=== PATIENT | male | born 1940 | race Caucasian/White ===

== ENCOUNTER 2016-06-05 | Emergency (ER) | payer OTHER ==
--- NOTE | 2016-06-05 01:03 | PROVIDER DOCUMENTATION ---
HPI-Male Problem - General Source: patient, family <Eduard Bueno - Last Filed: 06/05/16 02:37> <JenniferHortencia - Last Filed: 06/05/16 02:42> - General Chief Complaint: Male Stated Complaint: @FALL 1530 Time Seen by Provider: 06/05/16 00:16 Allergies/Adverse Reactions: Patient Allergies Allergy/AdvReac Type Severity Reaction Status Date / Time No Known Allergies Allergy Verified 06/05/16 00:16 Home Medications: Losartan [Cozaar] 25 mg PO QAM 11/27/13 [place] Fatty Acids/Fish Oil [[place] 1,000 mg Softgel] 1,000 mg PO QAM Aspirin 325 mg PO QHS 06/05/16 Bisoprolol Fumarate/Hctz [Bisoprolol-Hctz 5-6.25 mg Tab] 1 each PO QAM 06/05/16 Carvedilol 3.125 mg PO BID 06/05/16 Donepezil [Aricept] 5 mg PO QHS 06/05/16 Prasugrel [Effient] 10 mg PO QAM 06/05/16 Sitagliptin Phos/Metformin HCl [Janumet 50-500 mg Tablet] 1 each PO BID Tamsulosin [Flomax] 0.4 mg PO QHS 06/05/16 Venlafaxine [Effexor] 75 mg PO QAM 06/05/16 - History of Present Illness-Male Nature of Presenting Problem: Pt is a 75 y/o male c chief complaint of dysuria and weakness x 1 week. Pt has been taking flomax and wearing a depends diaper and feels like he may have a UTI. This evening, pt slid out of his bed because he was too weak to stand. Pt did not fall or land hard on the floor. His witnessed him slide out of bed and noticed a foul odor to his urine. Last week, pt had a minor head injury to his R side of his head after falling. He was evaluated at another ER with a CT scan and found to be in no distress. (Eduard Bueno) Review of Systems - Adult - REVIEW OF SYSTEMS - ADULT Constitutional: reports: no symptoms reported. denies: chills, fatique Eyes: reports: no symptoms reported. denies: blurred vision, double vision Ears, Nose, Mouth & Throat: reports: no symptoms reported. denies: ear pain, nose pain, throat pain Cardiovascular: reports: no symptoms reported. denies: chest pain, orthopnea Respiratory: reports: no symptoms reported. denies: cough, shortness of breath Gastrointestinal: reports: no symptoms reported. denies: abdominal pain, nausea Genitourinary: reports: dysuria, flank pain, frequent UTI's. denies: hematuria Musculoskeletal: reports: no symptoms reported. denies: bone pain, joint pain Integumentary: reports: no symptoms reported. denies: hives, itching Neurological: reports: no symptoms reported. denies: numbness, paresthesia Psychiatric: reports: no symptoms reported. denies: anxiety, emotional problems Endocrine: reports: no symptoms reported. denies: cold intolerance, heat intolerance Hematologic/Lymphatic: reports: no symptoms reported. denies: blood clots, low blood count Allergic/Immunologic: reports: no symptoms reported. denies: allergic reactions , food allergy All Other Systems: Reviewed and Negative <Eduard Bueno - Last Filed: 06/05/16 02:37> Past History - Adult - PAST MEDICAL HISTORY-ADULT Review of Records: reports: Old Records Reviewed, Nursing Assessment Review, Medications Reviewed, Social history reviewed & non-contributory. Major Childhood Illnesses: reports: denies history Cardiovascular: reports: CAD, HTN, [place] Respiratory: reports: denies history Gastrointestinal: reports: denies history Obstetrical/Gynecological: reports: denies history Genitourinary: reports: denies history Musculoskeletal: reports: denies history Neurological: reports: denies history Psychiatric: reports: denies history Endocrine/Immune: reports: Diabetes Other Conditions: reports: denies history - PRIOR HOSPITALIZATIONS Prior Hospitalizations: reports: for other non-related - IMMUNIZATION STATUS Childhood Immunizations: See Nurse Assessment Flu Vaccine: See Nurse Assessment - FAMILY HISTORY Family History: reviewed, not pertinent - SOCIAL HISTORY Smoking: denies Substance Use: none/never Alcohol Use Frequency: never Living Situation: family <Eduard Bueno - Last Filed: 06/05/16 02:37> Physical Exam-General - PHYSICAL EXAM-ADULT Initial Vital Signs Reviewed: Yes - CONSTITUTIONAL General Appearance: appears well, alert, no apparent distress - EYES Eyes: PERRL/EOMI, pink conjunctivae - HEAD, EARS, NOSE, MOUTH & THROAT HENMT: normocephalic/atraumatic, moist mucous membranes, normal ENT inspection - NECK Neck: non-tender, full range of motion, normal inspection - RESPIRATORY Respiratory: chest non-tender, lungs clear, normal breath sounds - CARDIOVASCULAR Cardiovascular: normal peripheral pulses, regular rate, rhythm, no edema - GASTROINTESTINAL (ABDOMEN) Abdominal Exam: normal bowel sounds, non tender, soft - GENITOURINARY Female Genitalia/Pelvic Exam: external exam normal - LYMPHATIC Lymphatic: no adenopathy - MUSCULOSKELETAL Back Exam: normal inspection, no CVA tenderness, no vertebral tenderness Extremity: normal range of motion, non-tender, normal gait - SKIN Integumentary: normal color, normal turgor, warm/dry - NEUROLOGIC Neurologic: grossly normal, no motor/sensory deficits - PSYCHIATRIC Psych/Mental Status: normal mood/affect, normal thought content, normal thought process, oriented x 3 <Eduard Bueno - Last Filed: 06/05/16 02:37> Progress - REASSESSMENT Reassessment #1 Time Reassessed: 02:41 (Dr. No ( MD) reviewed labs and imaging studies. He agreed c plan of care to d/c pt to have him f/u c pcp. ) - XRAY 1 XRAY Study: Chest Impression: Normal (unchanged from 11/27/13) <Eduard Bueno - Last Filed: 06/05/16 02:37> - EKG 1 Time of EKG reading by physician:: 02:34 EKG Read and Signed by:: Markos No EKG Interpretation (*Must complete 3 of following elements*): Abnormal Rate: 53 Rhythm: Sinus Bradycardia Comments: Inferior Infract, Abnormal ECG - CT/MRI 1 CT Study: Head Impression: Normal CT Results: Atrophy otherwise normal <Hortencia Rodriguez - Last Filed: 06/05/16 02:42> - PLAN OF CARE/RESULTS Progress/Plan/Lab Results: Orders Category Date Time Status CHEST-2 VIEWS [RAD] Stat Exams 06/05/16 01:46 Taken HEAD W/O CONTRAST [CT] Stat Exams 06/05/16 01:48 Taken CBC WITH ELECTRONIC DIFF [HEME] Stat Lab 06/05/16 01:05 Completed CK PROFILE [SP CHEM] Stat Lab 06/05/16 01:05 Completed CMP [COMPREHENSIVE METABOLIC PANEL] [CHEM] Stat Lab 06/05/16 01:05 Completed TROPONIN T Stat Lab 06/05/16 01:05 Completed UA Reflex [URINALYSIS W/POSS RFLX CULT] [URINALYSIS] Lab 06/05/16 00:56 Completed Stat EKG [EKG] Stat Ther 06/05/16 01:48 Ordered Laboratory Tests 06/05/16 06/05/16 06/05/16 00:56 01:05 01:05 WBC 13.29 H RBC 4.08 L Hgb 13.7 L Hct 38.0 L MCV 93.1 MCH 33.6 H MCHC 36.1 RDW Std Deviation 12.4 Plt Count 262 MPV 9.6 Immature Gran % (Auto) 0.2 Neut % (Auto) 75.7 H Lymph % (Auto) 14.6 L [place] % (Auto) 8.1 Eos % (Auto) 1.2 Baso % (Auto) 0.2 Immature Gran # (Auto) 0.02 Neut # 10.08 H Lymph # 1.94 [place] # 1.07 H Eos # 0.16 Baso # 0.02 Sodium 138 Potassium 3.7 Chloride 101 Carbon Dioxide 23 L Anion Gap 14 BUN 20 Creatinine 1.1 Estimated GFR/1.73 m2 > 60 BUN/Creatinine Ratio 18 Glucose 130 H Calculated Osmolality 280 Calcium 9.6 Total Bilirubin 0.54 AST 38 H ALT 26 Alkaline Phosphatase 93 Creatine Kinase Creatine Kinase Index CK-MB (CK-2) Troponin T Total Protein 6.6 Albumin 4.0 Globulin 2.6 Albumin/Globulin Ratio 1.5 Urine Source CATH Urine Color YELLOW Urine Turbidity CLEAR Urine pH 5.5 Ur Specific [place] 1.021 Urine Protein NEGATIVE Ur Glucose (Stick) NEGATIVE Ur Ketones (Stick) NEGATIVE Urine Blood NEGATIVE Urine Nitrite NEGATIVE Urine Bilirubin NEGATIVE Urobilinogen Dipstick NORMAL Urine Leukocytes NEGATIVE Urine WBC (Auto) <10 Urine RBC (Auto) <10 U Epithel Cells (Auto) <10 Urine Bacteria (Auto) NEGATIVE 06/05/16 06/05/16 01:05 01:05 WBC RBC Hgb Hct MCV MCH MCHC RDW Std Deviation Plt Count MPV Immature Gran % (Auto) Neut % (Auto) Lymph % (Auto) [place] % (Auto) Eos % (Auto) Baso % (Auto) Immature Gran # (Auto) Neut # Lymph # [place] # Eos # Baso # Sodium Potassium Chloride Carbon Dioxide Anion Gap BUN Creatinine Estimated GFR/1.73 m2 BUN/Creatinine Ratio Glucose Calculated Osmolality Calcium Total Bilirubin AST ALT Alkaline Phosphatase Creatine Kinase 1088 H Creatine Kinase Index 1.1 CK-MB (CK-2) 11.52 H Troponin T < 0.010 Total Protein Albumin Globulin Albumin/Globulin Ratio Urine Source Urine Color Urine Turbidity Urine pH Ur Specific [place] Urine Protein Ur Glucose (Stick) Ur Ketones (Stick) Urine Blood Urine Nitrite Urine Bilirubin Urobilinogen Dipstick Urine Leukocytes Urine WBC (Auto) Urine RBC (Auto) U Epithel Cells (Auto) Urine Bacteria (Auto) Vital Signs - 24 hr 06/05/16 00:07 Temperature 97.7 F Pulse Rate 64 Respiratory 18 Rate Blood Pressure 148/95 O2 Sat by Pulse 98 Oximetry (Eduard Bueno) Departure - Departure Time of Disposition Order: 02:39 Certified Medical Emergency: Emergent <Eduard Bueno - Last Filed: 06/05/16 02:37> <Hortencia Rodriguez - Last Filed: 06/05/16 02:42> - Departure DIAGNOSIS: Weakness Leukocytosis Qualifiers: Leukocytosis type: unspecified Qualified Code(s): D72.829 - Elevated white blood cell count, unspecified Disposition: HOME 01 Condition: Stable Prescriptions: Cephalexin [Keflex] 500 mg PO BID #14 capsule Referrals: Cezar Millard MD [Primary Care Provider] - [place] BRADFORD MD [STAFF PHYSICIAN] - Attestation - Physician/ Mid-level Attestation Patient care was provided by Mid-level provider (CERTIFIED PERSONAL CHEF/PA):: Yes Mid-level provider:: Eduard Bueno Mid-level documentation review:: The Mid-level provider documentation, treatment plan and medical decision making was reviewed by the physician who agrees with all treatment and medical decision making by the MLP. <Eduard Bueno - Last Filed: 06/05/16 02:37> Physician Attestation
[2016-06-05 01:16] LABS: URINE CULTURE NEEDED? NO; URINE MICRO REVIEW NEEDED? NO; URINE SOURCE CATH
[2016-06-05 01:16] LABS: MANUAL DIFF NEEDED? NO
[2016-06-05 01:18] LABS: BASO% 0.2 % (0.0-0.8); EOS# 0.16 X1000 (0.0-0.7); EOS% 1.2 % (0.0-10.0); HEMOGLOBIN 13.7 g/dL (14.0-18.0); IMM GRAN# 0.02 X1000 (0.0-0.04); IMM GRAN% 0.2 % (0.0-0.5); LYMPH# 1.94 X1000 (1.2-3.4); LYMPH% 14.6 % (20.5-51.1); MCH 33.6 PG (27-31); MCHC 36.1 g/dL (33-37); MCV 93.1 FL (81-99); MONO# 1.07 X1000 (0.11-0.59); MONO% 8.1 % (1.7-9.3); MPV 9.6 FL (7.4-10.4); NEUT% 75.7 % (42.2-75.2); PLT 262 X1000 (130-400); RBC 4.08 XMIL (4.7-6.1)
[2016-06-05 01:19] LABS: BILIRUBIN URINE NEGATIVE (NEGATIVE); BLOOD URINE NEGATIVE (NEGATIVE); COLOR YELLOW; GLUCOSE URINE NEGATIVE (NEGATIVE); LEUKOCYTES URINE NEGATIVE (NEGATIVE); NITRITE URINE NEGATIVE (NEGATIVE); PH URINE 5.5; PROTEIN URINE NEGATIVE (NEGATIVE); SP GRAVITY URINE 1.021; TURBIDITY URINE CLEAR (CLEAR); UROBILINOGEN URINE NORMAL (NORMAL)
[2016-06-05 01:21] LABS: UR EPITHELIAL CELLS <10 /HPF (<10); URINE BACTERIA NEGATIVE /HPF; URINE RBC <10 /HPF (<10); URINE WBC <10 /HPF (<10)
[2016-06-05 01:37] LABS: AGAP 14; ALKALINE PHOSPHATASE 93 U/L (32-122); BUN 20 mg/dL (8-22); CALCIUM 9.6 mg/dL (8.8-10.2); CHLORIDE 101 mmol/L (98-107); COSMO 280; GOT 38 U/L (10-34); GPT 26 U/L (10-44); POTASSIUM 3.7 mmol/L (3.5-5.1); SODIUM 138 mmol/L (136-145); TCO2 23 mmol/L (25-35); TOTAL BILIRUBIN 0.54 mg/dL (0.20-1.00); TOTAL PROTEIN 6.6 g/dL (6.3-8.3)
[2016-06-05 02:30] LABS: CK INDEX 1.1 (0.0-2.5); CK-MB 11.52 ng/mL (0.0-5.0)
[2016-06-05] MEDS ORDERED: ROCEPHIN 1 GM/NS 50 ML IV ONE (02:39)
[2016-06-05] MEDS ORDERED: ROCEPHIN IM ONE (02:56)
[2016-06-05] MEDS ORDERED: XYLOCAINE-MPF 1% INJ ONE (02:56)
[2016-06-05 03:39] VITALS: BP 152/78
--- NOTE | 2016-06-05 05:50 | EKG Report ---
Test Performed on : 06/05/2016 02:34:12 AM Test Reason : weakness Blood Pressure : / mmHG Vent. Rate : 053 BPM Atrial Rate : 053 BPM P-R Int : 174 ms QRS Dur : 086 ms QT Int : 452 ms P-R-T Axes : 067 -09 -12 degrees QTc Int : 424 ms Sinus bradycardia. Inferior infarct , age undetermined Abnormal ECG No previous ECGs available Unconfirmed Result
--- NOTE | 2016-06-05 07:32 | Diag Imaging Result Document ---
PROCEDURE NAME: CHEST-2 VIEWS - 06/05/2016 CHEST X-RAY 2 VIEWS: COMPARISON: 11/27/2013. FINDINGS: Stable calcified granulomas in the right lung base. No focal infiltrates, pneumothorax, or pleural effusion. Heart size is normal. IMPRESSION: Negative exam.
--- NOTE | 2016-06-05 08:19 | Diag Imaging Result Document ---
PROCEDURE NAME: HEAD W/O CONTRAST - 06/05/[address], 06/05/2016: A CT dose reduction protocol was used. COMPARISON: 11/27/2013. FINDINGS: Stable diffuse atrophy. No intracranial mass or hemorrhage. The skull is intact. The sinuses, mastoids, and middle ears are clear. There is moderate vascular calcification of the carotid siphons and basilar artery. IMPRESSION: Chronic ischemic changes of the brain. No acute disease. [facility]
== END 2016-06-05 03:39 | disposition home or self-care (01) ==
LOC: ED
DX: R53.1 Weakness (principal); D72.829 Elevated white blood cell count, unspecified; R94.31 Abnormal electrocardiogram [ECG] [EKG]; R30.0 Dysuria; R10.9 Unspecified abdominal pain; I25.10 Atherosclerotic heart disease of native coronary artery without angina pectoris; I10 Essential (primary) hypertension; I25.2 Old myocardial infarction; Z79.899 Other long term (current) drug therapy; E11.9 Type 2 diabetes mellitus without complications; Z79.82 Long term (current) use of aspirin; Z87.440 Personal history of urinary (tract) infections; W19.XXXA Unspecified fall, initial encounter
CPT/HCPCS: 70450; 71020; 80053; 81001; 82550; 82553; 84484; 85025; 93005; 96372; J0696

== ENCOUNTER 2016-06-12 17:32 | Emergency (ER) | payer OTHER ==
[2016-06-12 18:55] LABS: MANUAL DIFF NEEDED? NO
[2016-06-12 18:56] LABS: BASO% 0.4 % (0.0-0.8); EOS# 0.08 X1000 (0.0-0.7); EOS% 0.9 % (0.0-10.0); HEMATOCRIT 39.2 % (42.0-52.0); HEMOGLOBIN 13.9 g/dL (14.0-18.0); IMM GRAN# 0.02 X1000 (0.0-0.04); IMM GRAN% 0.2 % (0.0-0.5); LYMPH# 1.74 X1000 (1.2-3.4); LYMPH% 20.3 % (20.5-51.1); MCHC 35.5 g/dL (33-37); MCV 93.1 FL (81-99); MONO# 0.74 X1000 (0.11-0.59); MONO% 8.6 % (1.7-9.3); MPV 9.5 FL (7.4-10.4); NEUT% 69.6 % (42.2-75.2); PLT 276 X1000 (130-400); RBC 4.21 XMIL (4.7-6.1)
[2016-06-12 19:22] LABS: ALBUMIN 4.2 g/dL (3.5-5.0); CALCIUM 9.5 mg/dL (8.8-10.2); POTASSIUM 3.8 mmol/L (3.5-5.1); TOTAL BILIRUBIN 0.67 mg/dL (0.20-1.00); TOTAL PROTEIN 7.4 g/dL (6.3-8.3)
[2016-06-12 20:20] LABS: URINE CULTURE NEEDED? NO; URINE MICRO REVIEW NEEDED? NO; URINE SOURCE CLEAN CATCH
[2016-06-12 20:21] LABS: BILIRUBIN URINE NEGATIVE (NEGATIVE); BLOOD URINE NEGATIVE (NEGATIVE); COLOR YELLOW; GLUCOSE URINE NEGATIVE (NEGATIVE); LEUKOCYTES URINE NEGATIVE (NEGATIVE); NITRITE URINE NEGATIVE (NEGATIVE); PH URINE 5.5; PROTEIN URINE NEGATIVE (NEGATIVE); SP GRAVITY URINE 1.017; TURBIDITY URINE CLEAR (CLEAR); UROBILINOGEN URINE NORMAL (NORMAL)
[2016-06-12 20:22] LABS: UR EPITHELIAL CELLS <10 /HPF (<10); URINE BACTERIA NEGATIVE /HPF; URINE RBC <10 /HPF (<10); URINE WBC <10 /HPF (<10)
--- NOTE | 2016-06-12 20:55 | PROVIDER DOCUMENTATION ---
Addendum entered and electronically signed by Heena Cesar Scribe 06/12/16 21: 08: [facility]-General Adult - General Chief Complaint: Weakness Stated Complaint: RECHECK Time Seen by Provider: 06/12/16 20:14 Allergies/Adverse Reactions: Patient Allergies Allergy/AdvReac Type Severity Reaction Status Date / Time No Known Allergies Allergy Verified 06/12/16 20:36 Home Medications: Losartan [Cozaar] 25 mg PO QAM 11/27/13 [address] Fatty Acids/Fish Oil [[address] 1,000 mg Softgel] 1,000 mg PO QAM Aspirin 325 mg PO QHS 06/05/16 Bisoprolol Fumarate/Hctz [Bisoprolol-Hctz 5-6.25 mg Tab] 1 each PO QAM 06/05/16 Carvedilol 3.125 mg PO BID 06/05/16 Donepezil [Aricept] 5 mg PO QHS 06/05/16 Prasugrel [Effient] 10 mg PO QAM 06/05/16 Sitagliptin Phos/Metformin HCl [Janumet 50-500 mg Tablet] 1 each PO BID Tamsulosin [Flomax] 0.4 mg PO QHS 06/05/16 Venlafaxine [Effexor] 75 mg PO QAM 06/05/16 L.acidoph,Paracasei, B.lactis [Probiotic] 1 each PO HS 06/12/16 - History of Present Illness -Gen Adult Nature of Presenting Problems: 75 year old M presents to the ED with a cc of weakness. PT was admitted 1 week ago for weakness and was discharged with mild leukocytosis and placed on an antibiotic. states that pt is worse today. Per Dr. Millard, Pt had an appointment today for a urinalysis at [address] Millard states that was banging on the door making a scene. Staff opened the door and told that they were closed and to come to the ED. Original Note: [facility]-General Adult - General Source: patient - History of Present Illness -Gen Adult Location of Pain/Injury: reports: none Pain Radiation: reports: no radiation Quality of Pain: reports: none Severity: reports: mild Onset/Duration: reports: 1 week ago Timing: reports: still present Context/Activities at Onset: reports: none Modifying Factors: improves with: nothing Associated Symptoms: reports: weakness Similar Symptoms Previously?: Yes Recently seen or treated by another doctor?: Yes <Heena Cesar - Last Filed: 06/12/16 20:57> <Manuel Cartwright - Last Filed: 06/12/16 21:02> - General Chief Complaint: Weakness Stated Complaint: RECHECK Time Seen by Provider: 06/12/16 20:14 Allergies/Adverse Reactions: Patient Allergies Allergy/AdvReac Type Severity Reaction Status Date / Time No Known Allergies Allergy Verified 06/12/16 20:36 Home Medications: Losartan [Cozaar] 25 mg PO QAM 11/27/13 [address] Fatty Acids/Fish Oil [[address] 1,000 mg Softgel] 1,000 mg PO QAM Aspirin 325 mg PO QHS 06/05/16 Bisoprolol Fumarate/Hctz [Bisoprolol-Hctz 5-6.25 mg Tab] 1 each PO QAM 06/05/16 Carvedilol 3.125 mg PO BID 06/05/16 Donepezil [Aricept] 5 mg PO QHS 06/05/16 Prasugrel [Effient] 10 mg PO QAM 06/05/16 Sitagliptin Phos/Metformin HCl [Janumet 50-500 mg Tablet] 1 each PO BID Tamsulosin [Flomax] 0.4 mg PO QHS 06/05/16 Venlafaxine [Effexor] 75 mg PO QAM 06/05/16 L.acidoph,Paracasei, B.lactis [Probiotic] 1 each PO HS 06/12/16 Review of Systems - Adult - REVIEW OF SYSTEMS - ADULT Constitutional: denies: chills, fever Eyes: reports: no symptoms reported Ears, Nose, Mouth & Throat: reports: no symptoms reported Cardiovascular: denies: chest pain, palpitations Respiratory: denies: cough, shortness of breath Gastrointestinal: denies: abdominal pain, nausea, vomiting Genitourinary: reports: no symptoms reported Musculoskeletal: reports: muscle weakness. denies: muscle aches Integumentary: denies: skin sores/ulcer, skin thickening Neurological: reports: no symptoms reported Psychiatric: reports: no symptoms reported Endocrine: reports: no symptoms reported Hematologic/Lymphatic: reports: no symptoms reported Allergic/Immunologic: reports: no symptoms reported All Other Systems: Reviewed and Negative <ArsenioHeena - Last Filed: 06/12/16 20:57> Past History - Adult - PAST MEDICAL HISTORY-ADULT Review of Records: reports: Nursing Assessment Review, Medications Reviewed Major Childhood Illnesses: reports: denies history Cardiovascular: reports: CAD, HTN, [place] Endocrine/Immune: reports: Diabetes - PRIOR HOSPITALIZATIONS Prior Hospitalizations: reports: for other non-related - IMMUNIZATION STATUS Childhood Immunizations: See Nurse Assessment Flu Vaccine: See Nurse Assessment - FAMILY HISTORY Family History: reviewed, not pertinent - SOCIAL HISTORY Smoking: non-smoker Substance Use: none/never Alcohol Use Frequency: never <Stacey Cesara - Last Filed: 06/12/16 20:57> Physical Exam-General - PHYSICAL EXAM-ADULT Initial Vital Signs Reviewed: Yes - CONSTITUTIONAL General Appearance: appears well, alert, no apparent distress - RESPIRATORY Respiratory: chest non-tender, lungs clear, normal breath sounds - CARDIOVASCULAR Cardiovascular: normal peripheral pulses, regular rate, rhythm, no edema - GASTROINTESTINAL (ABDOMEN) Abdominal Exam: normal bowel sounds, non tender, soft - MUSCULOSKELETAL Extremity: normal inspection - SKIN Integumentary: normal color, normal turgor, warm/dry - PSYCHIATRIC Psych/Mental Status: normal mood/affect, normal thought content, normal thought process, oriented x 3 <ArsenioHeena - Last Filed: 06/12/16 20:57> Progress - EKG 1 Time of EKG reading by physician:: 18:08 EKG Read and Signed by:: Kevin Ye EKG Interpretation (*Must complete 3 of following elements*): Abnormal Rate: 69 Rhythm: sinus bradycadia with occasional PVCs [place]: normal Comments: inferior infarct, age undetermined. - CONSULTS/PCP/HOSPITALIST Notification #1 *Consult/PCP/Hospitalist*: Dr. Millard Time Discussed: 20:45 <Heena Cesar - Last Filed: 06/12/16 20:57> - PLAN OF CARE/RESULTS Progress/Plan/Lab Results: Discussed results and plan of care with patient. Patient agrees with plan and verbalizes understanding. Vital Signs Temp Pulse Resp BP Pulse Ox 06/12/16 17:58 97.5 F L 59 L 16 101/72 100 No Known Allergies Allergy (Verified 06/12/16 20:36) Losartan [Cozaar] 25 mg PO QAM 11/27/13 [address] Fatty Acids/Fish Oil [[address] 1,000 mg Softgel] 1,000 mg PO QAM Aspirin 325 mg PO QHS 06/05/16 Bisoprolol Fumarate/Hctz [Bisoprolol-Hctz 5-6.25 mg Tab] 1 each PO QAM 06/05/16 Carvedilol 3.125 mg PO BID 06/05/16 Cephalexin [Keflex] 500 mg PO BID #14 capsule 06/05/16 Donepezil [Aricept] 5 mg PO QHS 06/05/16 Prasugrel [Effient] 10 mg PO QAM 06/05/16 Sitagliptin Phos/Metformin HCl [Janumet 50-500 mg Tablet] 1 each PO BID Tamsulosin [Flomax] 0.4 mg PO QHS 06/05/16 Venlafaxine [Effexor] 75 mg PO QAM 06/05/16 L.acidoph,Paracasei, B.lactis [Probiotic] 1 each PO HS 06/12/16 I&O 06/11/16 06/12/16 06/13/16 06:59 06:59 06:59 Output Total 100 Balance -100 Laboratory 06/12/16 06/12/16 06/12/16 20:04 18:40 18:40 WBC 8.56 RBC 4.21 L Hgb 13.9 L Hct 39.2 L MCV 93.1 MCH 33.0 H MCHC 35.5 RDW Std Deviation 12.6 Plt Count 276 MPV 9.5 Immature Gran % (Auto) 0.2 Neut % (Auto) 69.6 Lymph % (Auto) 20.3 L [place] % (Auto) 8.6 Eos % (Auto) 0.9 Baso % (Auto) 0.4 Immature Gran # (Auto) 0.02 Neut # (Auto) 5.95 Lymph # (Auto) 1.74 [place] # (Auto) 0.74 H Eos # (Auto) 0.08 Baso # (Auto) 0.03 Sodium 136 Potassium 3.8 Chloride 99 Carbon Dioxide 24 L Anion Gap 13 BUN 19 Creatinine 1.2 Estimated GFR/1.73 m2 59 BUN/Creatinine Ratio 16 Glucose 91 Calculated Osmolality 274 Calcium 9.5 Total Bilirubin 0.67 AST 31 ALT 30 Alkaline Phosphatase 95 Total Protein 7.4 Albumin 4.2 Globulin 3.2 Albumin/Globulin Ratio 1.3 Urine Source CLEAN CATCH Urine Color YELLOW Urine Turbidity CLEAR Urine pH 5.5 Ur Specific [place] 1.017 Urine Protein NEGATIVE Ur Glucose (Stick) NEGATIVE Ur Ketones (Stick) NEGATIVE Urine Blood NEGATIVE Urine Nitrite NEGATIVE Urine Bilirubin NEGATIVE Urobilinogen Dipstick NORMAL Urine Leukocytes NEGATIVE Urine WBC (Auto) <10 Urine RBC (Auto) <10 U Epithel Cells (Auto) <10 Urine Bacteria (Auto) NEGATIVE Orders Category Date Time Status CHEST-2 VIEWS [RAD] Stat Exams 06/12/16 18:05 Taken CBC WITH ELECTRONIC DIFF [HEME] Stat Lab 06/12/16 18:40 Completed COMPREHENSIVE METABOLIC PANEL [CHEM] Stat Lab 06/12/16 18:40 Completed URINALYSIS W/POSS RFLX CULT [URINALYSIS] Stat Lab 06/12/16 20:04 Completed EKG [EKG] Stat Ther 06/12/16 18:05 Ordered Laboratory Tests 06/12/16 06/12/16 06/12/16 18:40 18:40 20:04 WBC 8.56 RBC 4.21 L Hgb 13.9 L Hct 39.2 L MCV 93.1 MCH 33.0 H MCHC 35.5 RDW Std Deviation 12.6 Plt Count 276 MPV 9.5 Immature Gran % (Auto) 0.2 Neut % (Auto) 69.6 Lymph % (Auto) 20.3 L [place] % (Auto) 8.6 Eos % (Auto) 0.9 Baso % (Auto) 0.4 Immature Gran # (Auto) 0.02 Neut # (Auto) 5.95 Lymph # (Auto) 1.74 [place] # (Auto) 0.74 H Eos # (Auto) 0.08 Baso # (Auto) 0.03 Sodium 136 Potassium 3.8 Chloride 99 Carbon Dioxide 24 L Anion Gap 13 BUN 19 Creatinine 1.2 Estimated GFR/1.73 m2 59 BUN/Creatinine Ratio 16 Glucose 91 Calculated Osmolality 274 Calcium 9.5 Total Bilirubin 0.67 AST 31 ALT 30 Alkaline Phosphatase 95 Total Protein 7.4 Albumin 4.2 Globulin 3.2 Albumin/Globulin Ratio 1.3 Urine Source CLEAN CATCH Urine Color YELLOW Urine Turbidity CLEAR Urine pH 5.5 Ur Specific [place] 1.017 Urine Protein NEGATIVE Ur Glucose (Stick) NEGATIVE Ur Ketones (Stick) NEGATIVE Urine Blood NEGATIVE Urine Nitrite NEGATIVE Urine Bilirubin NEGATIVE Urobilinogen Dipstick NORMAL Urine Leukocytes NEGATIVE Urine WBC (Auto) <10 Urine RBC (Auto) <10 U Epithel Cells (Auto) <10 Urine Bacteria (Auto) NEGATIVE - XRAY 1 XRAY Study: Chest XRAY Interpretation: NAD (SherinZoe) - CONSULTS/PCP/HOSPITALIST Notification #1 *Consult/PCP/Hospitalist*: Dr. Millard Time Discussed: 20:45 Reason/Comments: Consult Consult Disposition: other (Dr. Millard will call the patient tomorrow for some outpatient followup.) <Manuel Cartwright - Last Filed: 06/12/16 21:02> Departure <Heena Cesar - Last Filed: 06/12/16 20:57> - Departure Time of Disposition Order: 21:01 Certified Medical Emergency: Emergent <Manuel Cartwright - Last Filed: 06/12/16 21:02> - Departure DIAGNOSIS: Weakness Disposition: HOME 01 Condition: Stable Additional Instructions: Follow up with primary care physician Return to ED for any concerns or worsening of symptoms ED Follow Up Instructions: You have been treated by a care provider in the Emergency Department. These instructions are being provided to you so you can have an understanding of how to care for yourself upon discharge. Upon discharge from the Emergency Department, you are responsible for making arrangements for follow-up care by a physician of your choice. Take all prescribed medications as directed. Return to the Emergency Department immediately for any new or worsening symptoms. You may call the Physician Referral phone number at [phone] to obtain a list of Physicians who are taking new patients. Referrals: Cezar Millard MD [Primary Care Provider] - Attestation - Scribe Verification/Attestation Scribe:: Heena Cesar Acting as Scribe for:: Manuel Cartwright Scribe documention review:: This chart was documented by a scribe and accurately reflects the service the provider performed and the decisions made by the provider. <Heena Cesar - Last Filed: 06/12/16 20:57> - Physician/ Mid-level Attestation Patient care was provided by Mid-level provider (DIVISION ENGINEER/PA):: Yes Mid-level provider:: Manuel Cartwright Mid-level documentation review:: The Mid-level provider documentation, treatment plan and medical decision making was reviewed by the physician who agrees with all treatment and medical decision making by the MLP. <Manuel Cartwright - Last Filed: 06/12/16 21:02> Physician Attestation - Physician Attestation I, the provider, attest to the following statement:: Manuel Cartwright Physician documentation Attestation:: This documentation recorded by the scribe accurately reflects the service I personally performed and the decisions made by me. <Heena Cesar - Last Filed: 06/12/16 20:57>
[2016-06-12 21:21] VITALS: BP 125/57
--- NOTE | 2016-06-13 06:23 | EKG Report ---
Test Performed on : 06/12/2016 6:08:33 PM Test Reason : weakness Blood Pressure : / mmHG Vent. Rate : 069 BPM Atrial Rate : 056 BPM P-R Int : 140 ms QRS Dur : 090 ms QT Int : 452 ms P-R-T Axes : -12 000 017 degrees QTc Int : 484 ms Sinus bradycardia. with occasional premature ventricular complexes. Inferior infarct (cited on or before 27-NOV-2013) Abnormal ECG When compared with ECG of 05-JUN-2016 02:34, premature ventricular complexes. are now present QT has lengthened Unconfirmed Result
--- NOTE | 2016-06-13 08:17 | Diag Imaging Result Document ---
PROCEDURE NAME: CHEST-2 VIEWS - 06/12/2016 AP AND LATERAL CHEST: FINDINGS: There are granulomatous calcifications in the right lower lobe and lower hilum. There is no evidence of acute cardiac or pulmonary disease and, compared to 06/05/2016, there has been no significant change in the appearance of the chest. IMPRESSION: No evidence of acute disease.
== END 2016-06-12 21:20 | disposition home or self-care (01) ==
LOC: ED 17:32
DX: M62.81 Muscle weakness (generalized) (principal); R94.31 Abnormal electrocardiogram [ECG] [EKG]; I25.10 Atherosclerotic heart disease of native coronary artery without angina pectoris; I10 Essential (primary) hypertension; I25.2 Old myocardial infarction; E11.9 Type 2 diabetes mellitus without complications; Z79.82 Long term (current) use of aspirin; Z79.899 Other long term (current) drug therapy
CPT/HCPCS: 36415; 71020; 80053; 81001; 85025; 93005; 99284